=== PATIENT | male | born 1950 | race Caucasian/White ===

== ENCOUNTER 2018-04-29 13:26 | Emergency (ER) | payer MEDICARE ==
[2018-04-29] MEDS ORDERED: LIDOCAINE HCL 1% 20 ML VIAL ONE (14:10)
== END 2018-04-29 15:49 | disposition home or self-care (01) ==
LOC: EDH 13:26
DX: S90.454A Superficial foreign body, right lesser toe(s), initial encounter (principal); Z98.890 Other specified postprocedural states; W56.59XA Other contact with other fish, initial encounter; Y93.89 Activity, other specified; Y92.89 Other specified places as the place of occurrence of the external cause; Y99.8 Other external cause status
CPT/HCPCS: 10120; 73660